=== PATIENT | male | born 2005 | race Caucasian/White ===

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

== ENCOUNTER 2024-11-25 23:52 | Emergency (ER) | payer SELFPAY ==
[2024-11-25 23:57] VITALS: BP 138/85; PULSE 110; RESP 20; TEMP 98; BMI 42.3
== END 2024-11-26 02:43 | disposition home or self-care (01) ==
LOC: JER 23:52
DX: S02.2XXA Fracture of nasal bones, initial encounter for closed fracture (principal); Y04.8XXA Assault by other bodily force, initial encounter
CPT/HCPCS: 70160-TC-FY; 99283-25